=== PATIENT | female | born 1995 | race Two or more races ===

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

== ENCOUNTER → 2017-05-10 12:14 | Outpatient (CLI) | payer MEDICAID ==
[~2017-05-10 12:14] MED LIST: IBUPROFEN600 MG PO; PRENATABS RX TA1 TAB PO; SLOW RELEASE I160 MG PO
== END | disposition home or self-care (01) ==
LOC: D.LDO 12:14
DX: O48.0 Post-term pregnancy (principal); Z3A.40 40 weeks gestation of pregnancy

== ENCOUNTER 2017-05-14 05:00 | Inpatient (IN) | payer MEDICAID ==
[2017-05-14] MEDS ORDERED: PRENATABS RX TA1 TAB PO (06:12)
[2017-05-14] MEDS ORDERED: SLOW RELEASE I160 MG PO (06:13)
[2017-05-14 06:21] VITALS: BP 150/92; BMI 31.9
[2017-05-14 06:30] LABS: HEMOGLOBIN 9.8 g/dL (12-16); MCH 28.1 pg (26.0-34.0); MCHC 32.7 g/dL (31.0-37.0); MEAN PLATELET VOLUME 11.1 fL (7.4-10.4); RBC 3.49 10x6/uL (4.00-5.40); RDW 15.3 % (11.5-14.5); WBC 6.8 10x3/uL (4.8-10.8)
[2017-05-14 06:46] LABS: APPEARANCE CLOUDY (CLEAR); BACTERIA MANY /hpf (NONE SEEN); BILIRUBIN NEGATIVE (NEGATIVE); COLOR YELLOW (YELLOW); GLUCOSE NEGATIVE (NEGATIVE); KETONE NEGATIVE (NEGATIVE); NITRITE NEGATIVE (NEGATIVE); PROTEIN TRACE mg/dL (NEGATIVE); SPECIFIC GRAVITY 1.015 (1.005-1.020); UROBILINOGEN NORMAL (NORMAL)
[2017-05-14 06:47] LABS: MUCUS >1+ /lpf (NONE SEEN)
[2017-05-14 20:28] VITALS: BP 139/74
[2017-05-14 21:05] LABS: BASOPHILS 0.1 % (0-2); EOSINOPHILS 0 % (0-7); HEMATOCRIT 25.8 % (36.0-48.0); HEMOGLOBIN 8.6 g/dL (12-16); IMMATURE GRANULOCYTES 0.4 % (0-5); LYMPHOCYTES 5.4 % (15-50); MCH 28.4 pg (26.0-34.0); MCHC 33.3 g/dL (31.0-37.0); MCV 85.1 fL (80.0-100.0); MONOCYTES 5.9 % (2-11); NEUTROPHILS 88.2 % (40-80); RBC 3.03 10x6/uL (4.00-5.40); RDW 15.2 % (11.5-14.5)
[2017-05-14 21:06] LABS: PLATELET COUNT 107 10x3/uL (130-400); WBC 13.2 10x3/uL (4.8-10.8)
[2017-05-14 21:13] VITALS: BP 124/70
[2017-05-14 21:41] VITALS: BP 118/71
[2017-05-14 22:36] VITALS: BP 125/79
--- NOTE | 2017-05-14 23:19 | NUR ---
PT TRANSFERED FROM LDR ROOM TO PP ROOM. PT RESTING IN BED IN SEMI-FOWLERS POSITION, HOLDING , IN NO ACUTE DISTRESS. PT IS A 22YO G1 NOW P1 WITH OF VIABLE MALE TODAY @1857. INFANT WITH NUCHAL TIMES 1, REDUCED ON THE FIELD. PT WITH SUPERFICIAL LACERATIONS AND NO REPAIR. @ 40.4 WKS GESTATION. ELEVATED TEMP DEVELOPED AFTER . TYLENOL PROVIDED AND BLOOD CULTURES DRAWN, NO ANTIBIOTICS ORDER AT THIS TIME. WILL CONT TO MONITOR. AAOX3. HR REGULAR. LUNGS CTAB. ABDOMEN SOFT AND TENDER WITH FUNDAL MASSAGE. BS ACTIVE TIMES 4. FUNDUS FIRM AND ML @ U/-2 AFTER VOID. LOCHIA RUBRA SMALL. PERINIUM APPEARS TO BE INTACT WITH MINIMAL SWELLING NOTED. MARIA DEL CARMEN PAD AND PANTIES IN PLACE. PT S/P VOID. INSTRUCTED ON MARIA DEL CARMEN CARE WITH BETADINE WASH. PT HAS NOT PASSED GAS OR HAD A BM SINCE . PT TOLERATING REGULAR DIET. 2+ EDEMA NOTED TO LOWER EXTREMITES BILATERALLY. NO EDEMA NOTED TO UPPER EXTREMITIES BILATERALLY. 18G SL IN PLACE TO LEFT FA, FLUSHED WITH 5CC NS WITHOUT DIFFICULTY. NO REDNESS OR EDEMA NOTED TO SITE. PT TEMP NOW 99.1. PT RATES PAIN 3/10. FRESH WATER PROVIDED TO PT AND LINENS PROVIDED TO PT SO. PT DENIES ANY FURTHER NEEDS. BED IN LOW POSITION, SIDE RAILS UP TIMES 2, CALL LIGHT AND PHONE IN REACH. AT PT BS FOR COUPLET CARE AND SO REMAINS AT PT BS FOR SUPPORT AND ASSITANCE. WILL CONT TO MONITOR PT STATUS.
--- NOTE | 2017-05-15 00:30 | NUR ---
RN TO PT BS FOR ROUNDS. PT RESTING IN BED IN HIGH FOWLERS POSITION, ATTEMPTING TO BREASTFEED . PT IN NO ACUTE DISTRESS. FRESH WATER PROVIDED TO PT AT THIS TIME. PT DENIES ANY FURTHER NEEDS. BED IN LOW POSTION, SIDE RAILS UP TIMES 2, CALL LIGHT AND PHONE IN REACH. SO REMAINS AT PT BS FOR SUPPORT AND ASSISTANCE. REMAINS AT PT BS FOR COUPLET CARE. WILL CONT TO MONITOR PT STATUS.
--- NOTE | 2017-05-15 01:40 | NUR ---
RN TO PT BS. ASSISTED PT WITH LATCHING INFANT TO BREASTFEED. PT DENIES ANY FURTHER NEEDS AT THIS TIME. BED IN LOW POSITION, SIDE RAILS UP TIMES 2, CALL LIGHT AND PHONE IN REACH. SO REMAINS AT PT BS FOR SUPPORT AND ASSISTANCE. INFANT REMAINS AT PT BS FOR COUPLET CARE. WILL CONT TO MONITOR PT STATUS.
--- NOTE | 2017-05-15 03:30 | NUR ---
RN TO PT BS. PT AMBULATED TO BR WITH NO ASSISTANCE. PT VOIDED AND URINE COLLECTED FOR ORDERED URINE CULTURE. MARIA DEL CARMEN CARE PERFORMED USING BETADINE WASH. PT CLEANED SELF AND MARIA DEL CARMEN PAD AND PANTIES PLACED. CLEAN GOWN PLACED. PT RETURNED AMBULATION TO BED. PT TOLERATED WELL. BED IN LOW POSITION, SIDE RAILS UP TIMES 2, CALL LIGHT AND PHONE IN REACH. SO REMAINS AT PT BS FOR SUPPORT AND ASSISTANCE. INFANT REMAINS AT PT BS FOR COUPLET CARE. WILL CONT TO MONITOR PT STATUS.
--- NOTE | 2017-05-15 03:59 | NUR ---
RN TO PT BS TO PERFORM VS, WNL. PT C/O PAIN RATES 11/06, REQUESTS MEDICATION. DEMEROL 50MG PROVIDED TO PT AT THIS TIME. WATER MUG REFRESHED. PT DENIES ANY FURTHER NEEDS. BED IN LOW POSITION, SIDE RAILS UP TIMES 2, CALL LIGHT AND PHONE IN REACH. SO REMAINS AT PT BS FOR SUPPORT AND ASSISTANCE. REMAINS AT PT BS FOR COUPLET CARE. WILL CONT TO MONITOR PT STATUS.
[2017-05-15 04:04] VITALS: BP 127/67
--- NOTE | 2017-05-15 05:31 | NUR ---
CLINICAL LAB AT PT BS FOR AM DRAW.
[2017-05-15 05:42] LABS: HEMATOCRIT 24.2 % (36.0-48.0); HEMOGLOBIN 7.9 g/dL (12-16); MCH 27.8 pg (26.0-34.0); MCHC 32.6 g/dL (31.0-37.0); MCV 85.2 fL (80.0-100.0); MEAN PLATELET VOLUME 10.7 fL (7.4-10.4); RBC 2.84 10x6/uL (4.00-5.40); RDW 15.4 % (11.5-14.5); WBC 11.3 10x3/uL (4.8-10.8)
--- NOTE | 2017-05-15 06:32 | NUR ---
CBC RESULTS NOTED WITH LOW H&H, PT NOT SYMPTOMATIC. WILL NOTIFY AM SHIFT OF LAB RESULSTS. WBC DECREASED.
--- NOTE | 2017-05-15 07:23 | OP ---
PATIENT NAME: MEENA HERNANDEZ MEDICAL RECORD: [id number] :97 LOCATION:[id number] ADMISSION DATE:05/14/17 SURGEON: YONATAN TONG MD DATE OF OPERATION: 05/14/2017 Delivery Note Spontaneous vaginal delivery of male infant weighing 9 pounds 4.5 ounces, 8 and 9 Apgars, epidural anesthesia. No episiotomy, no lacerations. Spontaneous delivery of intact-appearing placenta. Estimated blood loss 400 cc. An 800 mcg of misoprostol placed in the rectum for a somewhat boggy uterus which promptly resolved. TRANSINT:[id number] Voice Confirmation ID: [id number] DOCUMENT ID: [id number] YONATAN TONG MD at 0723 CC: [id number] DICTATION DATE: 05/14/171918 DIRECTOR HOME HEALTH: 05/14/17 2220 ADM IN [facility] [address] [place] [address]
[2017-05-15 07:28] LABS: RAPID PLASMA REAGIN Non Reactive (Non Reactive)
--- NOTE | 2017-05-15 08:00 | NUR ---
DR TONG HERE TO SEE PT.
[2017-05-15 08:09] VITALS: BP 123/87
--- NOTE | 2017-05-15 08:14 | NUR ---
PT RINGS CALL LIGHT- STATES SHE NEEDS TO GET UP TO USE BATHROOM. INFORMED THAT IF SHE IS FEELING OK- MAY GET UP ON HER OWN DESIRED. VS DONE. UP TO BATHROOM.
--- NOTE | 2017-05-15 08:38 | NUR ---
IN SHOWER- TOLERATED WELL. LINENS CHANGED.
--- NOTE | 2017-05-15 10:41 | NUR ---
ASLEEP IN BED- IN ROOM.
[2017-05-15 13:10] VITALS: BP 121/78
--- NOTE | 2017-05-15 13:10 | NUR ---
SITTING UP IN BED HOLDING . DENIES NEEDS- NO REQUESTS. VS DONE.
--- NOTE | 2017-05-15 16:00 | NUR ---
UP AND ABOUT IN ROOM. DENIES NEEDS.
--- NOTE | 2017-05-15 18:25 | NUR ---
RINGS CALL LIGHT- REQUESTING PAIN MEDICATION. CO CRAMPING IN ABD. RATES PAIN A 3 ON SCALE OF 0-10.
--- NOTE | 2017-05-15 19:04 | NUR ---
report to pm shift.
--- NOTE | 2017-05-15 19:55 | NUR ---
PT TRANSFERRED VIA AMB FROM L&D PER L&D NURSE
[2017-05-15 20:25] VITALS: BP 129/83
--- NOTE | 2017-05-15 20:25 | NUR ---
ASSESSMENT PER FLOW SHEET, VS OBTAINED, SALINE LOCK IN LEFT HAND INTACT WITH NO REDNESS OR EDEMA, FF, ML, U/1, PT REPORTS LIGHT BLEEDING WITH NO CLOTS, PT REPORTS FLATUS, BMX2 TODAY AND VOIDING BY SELF WITH NO DIFFICULTY, PT DENIES NEEDS OR PAIN AT THIS TIME, BED IN LOW POSITION, SIDE RAILS X 2, CALL LIGHT IN REACH, BABY TO PT'S ARMS, FAMILY AND FRIENDS AT BEDSIDE
--- NOTE | 2017-05-15 21:07 | NUR ---
PT LOVINGLY HOLDING BABY, DENIES NEEDS OR PAIN, FAMILY AND FRIENDS AT BEDSIDE
--- NOTE | 2017-05-15 22:22 | NUR ---
PT HOLDING BABY, VISITING WITH FOB, DENIES PAIN, REQUESTED AND SERVED FRESH H20, DENIES FURTHER NEEDS
--- NOTE | 2017-05-16 00:13 | NUR ---
PT RESTING WITH EYES CLOSED, RESP QUIET, NO DISTRESS NOTED, LEFT UNDISTURBED AT THIS TIME, FOB ASLEEP IN RECLINER
--- NOTE | 2017-05-16 02:38 | NUR ---
PT AROUSES TO OPENING OF DOOR, DENIES NEEDS OR PAIN AT THIS TIME, FOB ASLEEP IN RECLINER
--- NOTE | 2017-05-16 04:50 | NUR ---
PT RESTING WITH EYES CLOSED, RESP QUIET, NO DISTRESS NOTED, LEFT UNDISTURBED AT THIS TIME, FOB ASLEEP IN RECLINER
--- NOTE | 2017-05-16 06:00 | NUR ---
PT ASSISTANT COMMUNITY DIRECTOR LIGHT, PT REQUESTED AND PROVIDED MARIA DEL [employer]MEN PANTIES, DENIES FURTHER NEEDS AT THIS TIME, FOB AND BABY AT BEDSIDE
--- NOTE | 2017-05-16 06:57 | NUR ---
SHIFT REPORT TO DARIN GOMEZ RN
[2017-05-16 07:30] VITALS: BP 120/77
--- NOTE | 2017-05-16 07:30 | NUR ---
PT WAS RECEIVED LYING IN BED. SHE OFFERS NO COMPLAINTS THIS AM. FOB AT BEDSIDE HOLDING BABY. GEN- AWAKE AND ALERT. LUNGS- CLEAR. HEART- RRR. ABD- SOFT WITH BS+. TENDERNESS WITH PALPATION. FUNDUS FIRM. SMALL LOCIA RUBRA. EXT- MINIMAL EDEMA LE. BED IS LOW, SIDE RAILS UP X 2 AND CALL LIGHT IN REACH. SALINE LOCK LEFT HAND PATENT. SHE STATES HER PAIN IS A 3.
--- NOTE | 2017-05-16 09:20 | NUR ---
PT IS SLEEPING. BED IS LOW, SIDE RAILS UP X 2 AND CALL LIGHT IN REACH.
--- NOTE | 2017-05-16 10:49 | NUR ---
PT AND FOB ARE BOTH SLEEPING. BED IS LOW, SIDE RAILS UP X 2 AND CALL LIGHT IN REACH.
--- NOTE | 2017-05-16 11:27 | NUR ---
PT REQUESTED MORE PANTIES. TOOK HER MESH UNDERWEAR. SHE OFFERS NO COMPLAINTS.
--- NOTE | 2017-05-16 11:49 | NUR ---
PT REQUESTED PAIN MEDICATION. SHE STATES HER PAIN IS ABOUT A 3 IN HER ABDOMEN.
[2017-05-16] MEDS ORDERED: IBUPROFEN600 MG PO (12:39)
--- NOTE | 2017-05-16 13:00 | NUR ---
PT OFFERS NO COMPLAINTS. SALINE LOCK D'CD. TIP INTACT.
--- NOTE | 2017-05-16 14:49 | NUR ---
PT IS C/O PAIN. PAIN MED GIVEN TO HER. SHE IS BEING DISCHARGED TO ROOM IN HERE SINCE BABY IS NOT GOING HOME. DISCHARGE INSTRUCTIONS DISCUSSED AND GIVEN. CALLED IN [facility] FOR HER TO GO [facility]ALTHC[facility] MARKETER AT PHARMACY. CALLED IN TO [facility] ON [facility] 600 MG Q 6 HRS PRN #40 NO REFILLS.
== END 2017-05-16 14:55 | disposition home or self-care (01) | DRG 775 ==
LOC: D.LD 05:00 → D.WS 05:38 → D.LD 05:38 → D.WS 05-15 19:55
PROVIDERS: ADMIT Obstetrics & Gynecology
PROC: 10E0XZZ Delivery of Products of Conception, External Approach (ICD-10-PCS; principal; 2017-05-14)
PROC: 10907ZC Drainage of Amniotic Fluid, Therapeutic from Products of Conception, Via Natural or Artificial Opening (ICD-10-PCS; 2017-05-14)
PROC: 3E0P3VZ Introduction of Hormone into Female Reproductive, Percutaneous Approach (ICD-10-PCS; 2017-05-14)
DX: O48.0 Post-term pregnancy (principal); Z37.0 Single live birth; Z3A.40 40 weeks gestation of pregnancy; O99.824 Streptococcus B carrier state complicating childbirth; O69.81X0 Labor and delivery complicated by cord around neck, without compression, not applicable or unspecified; O70.9 Perineal laceration during delivery, unspecified

== ENCOUNTER 2019-11-19 18:06 | Observation (INO) | payer MEDICAID ==
[~2019-11-19] VITALS: Ht 160 cm; Wt 65.9 kg
[2019-11-19 18:32] VITALS: Ht 160 cm; Wt 65.9 kg
[2019-11-19 19:31] LABS: CALC OSMOLALITY 266 mosm/kg (275-300); CALCIUM 8.3 mg/dL (8.5-10.1); CARBON DIOXIDE 27.4 mmol/L (21.0-32.0); CHLORIDE - SERUM 100 mmol/L (98-107); CREATININE - SERUM 0.5 mg/dL (0.6-1.3); GLUCOSE 86 mg/dL (74-106); POTASSIUM - SERUM 3.9 mmol/L (3.5-5.1); SODIUM 135 mmol/L (136-145); UREA NITROGEN 6 mg/dL (7-18); eGFR NON AFRICAN AMERICAN > 90 mL/min (90-120)
[2019-11-19 19:32] LABS: BASOPHILS 0.1 % (0-2); EOSINOPHILS 0.3 % (0-7); HEMATOCRIT 36.6 % (36.0-48.0); HEMOGLOBIN 12.4 g/dL (12-16); IMMATURE GRANULOCYTES 0.1 % (0-5); LYMPHOCYTES 21.4 % (15-50); MCH 29.8 pg (26.0-34.0); MCHC 33.9 g/dL (31.0-37.0); MEAN PLATELET VOLUME 11.1 fL (7.4-10.4); MONOCYTES 7.8 % (2-11); NEUTROPHILS 70.3 % (40-80); RBC 4.16 10x6/uL (4.00-5.40); RDW 12.2 % (11.5-14.5); WBC 6.8 10x3/uL (4.8-10.8)
[2019-11-19 19:34] LABS: PLATELET COUNT 179 10x3/uL (130-400)
[2019-11-19 19:37] LABS: ALBUMIN 3.6 g/dL (3.4-5.0); ALKALINE PHOSPHATASE 40 U/L (30-120); ALT (SGPT) 15 U/L (10-68); BILIRUBIN - TOTAL 0.35 mg/dL (0.2-1.3); PROTEIN - SERUM 7.4 g/dL (6.4-8.2)
--- NOTE | 2019-11-19 20:46 | NUR ---
URINE SENT TO LAB AT THIS TIME.
[2019-11-19] MEDS ORDERED: REGLAN5 MG PO (21:10)
[2019-11-19 21:24] LABS: BILIRUBIN NEGATIVE (NEGATIVE); GLUCOSE NEGATIVE (NEGATIVE); KETONE LARGE mg/dL (NEGATIVE); NITRITE NEGATIVE (NEGATIVE); SPECIFIC GRAVITY 1.025 (1.005-1.020); UROBILINOGEN NORMAL (NORMAL)
[2019-11-19 21:26] LABS: BACTERIA FEW /hpf (NEGATIVE); EPITHELIAL CELLS 0-5 /hpf (0-5); RED CELLS - URINE OCC /hpf (0-5); WHITE CELLS - URINE 0-5 /hpf (NEGATIVE)
[2019-11-19 22:23] VITALS: BP 116/74
[2019-11-20 05:52] LABS: BILIRUBIN NEGATIVE (NEGATIVE); GLUCOSE 50 mg/dL (NEGATIVE); KETONE NEGATIVE (NEGATIVE); NITRITE NEGATIVE (NEGATIVE); UROBILINOGEN NORMAL (NORMAL)
[2019-11-20 05:54] LABS: BACTERIA FEW /hpf (NEGATIVE); EPITHELIAL CELLS 0-5 /hpf (0-5); RED CELLS - URINE 0-5 /hpf (0-5); WHITE CELLS - URINE 0-5 /hpf (NEGATIVE)
== END 2019-11-20 06:05 | disposition home or self-care (01) ==
LOC: D.ER 18:06 → OBSVTIME 22:03 → D.LD 22:03
PROVIDERS: Family Medicine; ADMIT Obstetrics & Gynecology; ATTEND Obstetrics & Gynecology
DX: O21.1 Hyperemesis gravidarum with metabolic disturbance (principal); Z3A.11 11 weeks gestation of pregnancy

== ENCOUNTER → 2020-02-13 08:39 | Outpatient (CLI) | payer MEDICAID ==
[2019-11-19 18:32] VITALS: BMI 25.7
[~2020-02-13 08:39] MED LIST changes: +REGLAN5 MG PO
== END | disposition home or self-care (01) ==
LOC: D.US 08:39
PROVIDERS: ATTEND Student in an Organized Health Care Education/Training Program
DX: N63.11 Unspecified lump in the right breast, upper outer quadrant (principal); N63.21 Unspecified lump in the left breast, upper outer quadrant

== ENCOUNTER 2020-02-23 19:28 | Inpatient (IN) | payer MEDICAID ==
[~2020-02-23] VITALS: Ht 160 cm; Wt 73.9 kg
[2020-02-23] MEDS ORDERED: BUTALB-APAP-CA1 EACH PO (19:43)
[2020-02-23 20:23] LABS: BASOPHILS 0.1 % (0-2); EOSINOPHILS 0 % (0-7); HEMATOCRIT 33.5 % (36.0-48.0); IMMATURE GRANULOCYTES 1.4 % (0-5); LYMPHOCYTES 6.3 % (15-50); MCH 29.6 pg (26.0-34.0); MCHC 32.8 g/dL (31.0-37.0); MCV 90.3 fL (80.0-100.0); MEAN PLATELET VOLUME 10.7 fL (7.4-10.4); MONOCYTES 5.4 % (2-11); NEUTROPHILS 86.8 % (40-80); PLATELET COUNT 150 10x3/uL (130-400); RBC 3.71 10x6/uL (4.00-5.40); RDW 12.7 % (11.5-14.5); WBC 8.3 10x3/uL (4.8-10.8)
[2020-02-23 20:42] LABS: CALC OSMOLALITY 265 mosm/kg (275-300); CALCIUM 8.5 mg/dL (8.5-10.1); CARBON DIOXIDE 27.2 mmol/L (21.0-32.0); CHLORIDE - SERUM 102 mmol/L (98-107); CREATININE - SERUM 0.6 mg/dL (0.6-1.3); GLUCOSE 100 mg/dL (74-106); POTASSIUM - SERUM 3.5 mmol/L (3.5-5.1); SODIUM 134 mmol/L (136-145); UREA NITROGEN 6 mg/dL (7-18); eGFR NON AFRICAN AMERICAN > 90 mL/min (90-120)
--- NOTE | 2020-02-23 20:45 | NUR ---
URINE AND BLOOD TO LAB COVID 19 SWAB TO LAB.
[2020-02-23 20:49] LABS: ALBUMIN 2.7 g/dL (3.4-5.0); ALKALINE PHOSPHATASE 62 U/L (30-120); ALT (SGPT) 14 U/L (10-68); BILIRUBIN - TOTAL 0.32 mg/dL (0.2-1.3); PROTEIN - SERUM 6.7 g/dL (6.4-8.2)
[2020-02-23 21:01] LABS: BILIRUBIN NEGATIVE (NEGATIVE); GLUCOSE NEGATIVE (NEGATIVE); KETONE MODERATE mg/dL (NEGATIVE); NITRITE NEGATIVE (NEGATIVE); UROBILINOGEN NORMAL (NORMAL)
[2020-02-23 21:03] LABS: BACTERIA MANY /hpf (NEGATIVE); EPITHELIAL CELLS 0-5 /hpf (0-5); RED CELLS - URINE OCC /hpf (0-5); WHITE CELLS - URINE 0-5 /hpf (NEGATIVE)
[2020-02-23 21:18] VITALS: BP 107/67
[2020-02-23 21:19] LABS: APTT 30.7 SECONDS (22.8-39.4); INR 0.93 (0.85-1.17); PROTIME 12.5 SECONDS (11.6-15.0)
[2020-02-23 21:37] LABS: CKMB 0.1 U/L (0.0-3.6); CREATINE KINASE 33 UL (21-215); PRO BNP 46 pg/mL (0-125)
[2020-02-23 21:38] LABS: TROPONIN-I < 0.017 ng/mL (0.000-0.060)
[2020-02-23 22:46] VITALS: BMI 28.9
[2020-02-23 23:00] VITALS: BP 112/58
--- NOTE | 2020-02-24 00:06 | NUR ---
RECEIVED PT ON TO UNIT FROM ER. PT ALERT AND ORIENTED. AMBULATING WITHOUT DIFFICULTY. HEADACHE REPORTED AT THIS TIME. 100.9 TEMP CURRENTLY. PT REPORTS NO OTHER CONCERNS AT THIS TIME.
--- NOTE | 2020-02-24 00:53 | NUR ---
PT PLACED ON EFM X2 WITH + FHTS NOTED. FHR 155 WITH MODERATE VARIABILITY NOTED. NO CONTRACTIONS TRACED. Víctor FONG RN
--- NOTE | 2020-02-24 02:30 | NUR ---
FLU A&B, RSV, AND STREP LABS DONE, TAKEN TO LAB
--- NOTE | 2020-02-24 07:20 | NUR ---
RECIEVE REPORT. RESTING IN BED WITH EYES CLOSED. NO SIGNS OF DISTRESS. CONTINUE PLAN OF CARE AND SAFETY PRECAUTIONS.
[2020-02-24 09:46] VITALS: BP 111/70
--- NOTE | 2020-02-24 10:33 | NUR ---
PLACED ON MONITOR AT 1007 FOR NST. MOM REPORTS +FM. NST COMPLETED AT 1033, FHR BASELINE 140 WITH 10X10 ACCELS, MODERATE VARIBILITY. NO UC'S NOTED. REACTIVE NST. FM PALPABLE AND AUBILE BY RN DURING NST. REPORT GIVEN TO Martina RENNER RN.
--- NOTE | 2020-02-24 10:54 | NUR ---
REPORT CALLED TO DR. CHA REGARDING NST.
[2020-02-24 12:40] VITALS: BP 103/64
[2020-02-24 13:33] VITALS: Ht 160 cm; Wt 73.9 kg
[2020-02-24 16:59] VITALS: BP 107/69
--- NOTE | 2020-02-24 17:15 | NUR ---
DISCUSSED PT O2 THERAPY WITH DR. SAWYER AND SATS DURING PREVIOUS NST. ORDERS REC'D FOR CONTINUOUS PULSE OX MONITORING.
--- NOTE | 2020-02-24 18:20 | NUR ---
REACTIVE NST NOTED WITH FHT BASELINE 150 WITH 10 X 10 ACCELS, NO DECELS NOTED, NO UC'S NOTED. ON 4 L O2, SAT FROM 95%-97%. EDUCATED PT ON S/S TO REPORT, VERBALIZES UNDERSTANDING. REPORT GIVEN TO GINO GARCIA AND DISCUSSED CONTINUOUS O2 MONITORING PER ORDER.
--- NOTE | 2020-02-24 19:00 | NUR ---
REPORT RECEIVED, WILL CONTINUE POC. PATIENT IS AAOX4, SITTING UP IN BED. NO S/S OF DISTRESS OBSERVED, RR EVEN AND UNLABORED ON 4L O2 VIA NC. PATIENT REQUESTING A SHOWER. INFORMED PATIENT THAT A BED BATH/TUB BATH IS SUGGESTED AT THIS TIME DUE TO HER NEED TO HAVE O2 ON TO KEEP HER SATS >95% PATIENT AGREES. PATIENT DENIES FURTHER NEEDS AT THIS TIME. CL IN REACH, BED LOCKED AND LOWERED. WILL CTM.
[2020-02-24 20:00] VITALS: BP 99/60
--- NOTE | 2020-02-24 20:30 | NUR ---
CONTINUOUS PULSE OXIMETRY APPLIED. O2 SAT 98% ON 4L.
--- NOTE | 2020-02-24 21:55 | NUR ---
ADMINISTERED HS MEDS, PATIENT TOLERATED WELL. PROVIDED TUB BATH SUPPLIES. INFORMED PATIENT TO USE CALL LIGHT WHEN SHE IS READY FOR HER LINENS TO BE CHANGED. PROVIDED ICE WATER AND SNACKS PER REQUEST. PATIENT DENIES FURTHER NEEDS AT THIS TIME. CL IN REACH, BED LOCKED AND LOWERED. WILL CTM.
[2020-02-25] VITALS: BP 91/53
--- NOTE | 2020-02-25 02:24 | NUR ---
PT PLACED ON EFM WITH EXCESSIVE MOVEMENT NOTED. FHTS OBTAINED AT APPROX 0243. FHR 110-120 WITH ACCELS TO 130. NO DISTRESS NOTED. EFM REMOVED AT 0304. Víctor FONG RN
--- NOTE | 2020-02-25 03:20 | NUR ---
I have reviewed this patient and I concur with the Shift Assessment completed by the Licensed Practical Nurse today this shift.
[2020-02-25 04:00] VITALS: BP 90/52
--- NOTE | 2020-02-25 11:41 | NUR ---
REACTIVE NST NOTED. +FM. BASELINE 130 WITH 10 X 10 ACCELS, OCCASIONAL VARIBLE NOTED, NO UC'S. REPORT CALLED TO DR. CHA. O2 DURING NST 94% (WHEN TALKING) OTHERWISE 95%-97%.
--- NOTE | 2020-02-25 19:10 | NUR ---
REPORT RECEIVED, WILL CONTINUE POC. PATIENT IS AAOX4, SITTING UP IN BED. NO S/S OF DISTRESS OBSERVED, RR EVEN AND UNLABORED ON 4L O2 VIA NC AND ON CONTINUOUS PULSE OXIMETRY 98% PATIENT DENIES FURTHER NEEDS AT THIS TIME. CL IN REACH, BED LOCKED AND LOWERED. WILL CTM.
--- NOTE | 2020-02-25 19:20 | NUR ---
PT PLACED ON EFM X2 WITH + FHTS NOTED.Víctor JONES RN
--- NOTE | 2020-02-25 19:42 | NUR ---
NST RESULTS: FHTS 135-140. ACCESLS TO 150S NOTED. SOME LOSS OF CAPTURE DUE TO MOVEMENT NOTED. MATERNAL PULSE OX 98-100% ON 4.5 LITERS OF O2. NO DISTRESS NOTED AT THIS TIME. Víctor FONG RN
--- NOTE | 2020-02-25 19:49 | NUR ---
PT UP TO BATHROOM TO VOID. PULSE OX TO 95% ON ROOM AIR. COUGHING AND SOB NOTED WITH EXERTION. Víctor FONG RN
--- NOTE | 2020-02-25 22:00 | NUR ---
PATIENT CIGARETTE SELLER LIGHT TO USE RESTROOM. PATIENT SATS BETWEEN 88%-98% WHILE GOING TO AND FROM BATHROOM. SUGGESTED PATIENT USE BEDSIDE COMMODE SO THAT HER NASAL CANNULA CAN STAY ON, PATIENT AGREED. PROVIDED SANDWICH TRAY AND DRINK PER REQUEST. PATIENT DENIES FURTHER NEEDS AT THIS TIME. CL IN REACH, BED LOCKED AND LOWERED. DROPLET PRECAUTIONS MAINTAINED. WILL CTM.
[2020-02-26] VITALS: BP 98/61
--- NOTE | 2020-02-26 02:47 | NUR ---
I have reviewed this patient and I concur with the Shift Assessment completed by the Licensed Practical Nurse today this shift.
--- NOTE | 2020-02-26 03:35 | NUR ---
P TPLACED ON EFM FOR NST. + FHTS NOTED. Víctor FONG RN
[2020-02-26 04:00] VITALS: BP 105/67
--- NOTE | 2020-02-26 04:06 | NUR ---
FHR 135 WITH 15 X15 ACCELS NOTED, MATERNAL PULSE OX 95%. NST REACTIVE. GINO JONES
[2020-02-26 08:17] VITALS: BP 104/59
[2020-02-26 11:56] VITALS: BP 99/62
--- NOTE | 2020-02-26 11:56 | NUR ---
THIS RN TO ROOM. PT AWAKE. AAO X 3. VSS. EFHM PLACED WITH FHR 130'S-140'S. TOCO PLACED OVER FUNDUS. ABDOMEN PALPATES SOFT. PT STATES BABY ACTIVE. DENIES VAGINAL BLEEDING, LEAKING FLUID OR ABDOMINAL PAIN/TIGHTENING/CTX'S. PT ON 3 LITERS O2 PER N/C. STATES BECOMES SHORT OF BREATH WHEN AMBULATORY. DENIES C/O AT THIS TIME.
--- NOTE | 2020-02-26 12:30 | NUR ---
REACTIVE NST NOTED-FHR BASELINE 140 WITH ACCELS+; NO DECELS NOTED; MOD VARIABILITY NOTED. NO CTX'S NOTED.
--- NOTE | 2020-02-26 14:14 | NUR ---
Nutrition Follow-up: Pt in droplet isolation; covid-19 positive. Nursing reports pt eating well; asks to have vanilla ice cream added to lunch and dinner tray. Diet: Regular WT: 163# (02/23) No new labs Meds noted -+vanilla ice cream with lunch and dinner. -Monitor wt. -RD following.
[2020-02-26 17:19] LABS: C-REACTIVE PROTEIN 1.4 mg/dL (0.0-0.9)
--- NOTE | 2020-02-26 19:30 | NUR ---
PT IN BED, AAO X 3, RESP EVEN AND UNLABORED. NO DISTRESS NOTED, CL IN REACH, SR UP X 2.
[2020-02-26 20:00] VITALS: BP 106/61
--- NOTE | 2020-02-26 21:19 | NUR ---
fhr check. no uc's noted per toco nor felt per pt. fhr 140-150 w/ 0x10 accel to 160, audible movement noted. pt denies pain in abdomen, leaking of fluid, or vaginal bleeding. instructed to inform nurse if any of these signs or symptoms present. acknowledged understanding
[2020-02-27] VITALS: BP 106/66
[2020-02-27 04:00] VITALS: BP 117/56
--- NOTE | 2020-02-27 04:50 | NUR ---
to room for fht's, pt noted to be supine, resting quietly, spo2 93% on 3 LPM nc, fhr 130-140 w/ moderate variability, audible movement noted w/ accel to 150 for greater than 10 sec.
--- NOTE | 2020-02-27 08:00 | NUR ---
PT SITTING UP IN BED, RR EVEN AND UNLABORED ON 2L NC. DENIES NEEDS OR PAIN AT THIS TIME. CALL LIGHT WITHIN REACH. STATES SHE STILL FEELS THE BABY KICKING. BED IN LOWEST POSITION. WILL CONTINUE TO MONITOR.
[2020-02-27 08:06] VITALS: BP 109/56
[2020-02-27 11:57] VITALS: BP 115/72
--- NOTE | 2020-02-27 13:11 | NUR ---
EFM/TOCO APPLIED PER DR. CHA WHEN ROUNDING. RN TO BEDSIDE AT 1309, STRIP REVIEWED, REACTIVE NST NOTED WITH BASELINE OF 140, 10 X 10 ACCELS, MODERATE VARIBILITY NOTED, VARIBLE NOTED AT 1246. FM AUBILE AND PALABLE BY RN. PT REPORTS + FM. REPORTS DUNCAN, O2 2 L/MIN VIA NC. O2 SAT 96-97% WHILE RN AT BEDSIDE, DENIES NEEDS. BED IN LOW POSITION WITH SRUP X2. CALL LIGHT AND PHONE WITHIN REACH. PT INSTRUCTED TO NOTIFY STAFF OF DECREASED FM OR ABD PAIN/UC'S.
--- NOTE | 2020-02-27 13:21 | MORECARE ---
CASE MANAGEMENT DISCHARGE SUMMARY PATIENT: MEENA HERNANDEZ UNIT: [id number] ADM DATE: 02/23/20 AGE: 24 : 97 SEX: F ROOM/BED: D.2140 AUTHOR: HOMERO POLLARD PHYSICIAN: REFERRING PHYSICIAN: JULIAN CHA DO DATE OF SERVICE: 02/27/20 Discharge Plan Patient Name: MEENA HERNANDEZ Facility: [facility]:[place] : 1995 Planned Disposition: Home Anticipated Discharge Date: Discharge Date: Expected LOS: Initial Reviewer: [email or web address] Initial Review Date: 02/23/2020 Generated: 02/27/20 2:21 pm Patient Name: MEENA HERNANDEZ Page [id number] at 1321 All edits/amendments must be made on the electronic document DICTATION DATE: 02/27/20 1321 SALES FLOOR TEAM LEADER: KATIE 02/27/20 1321 RPT#: [id number] DC DATE: STATUS: ADM IN [facility] [address] [place] [address] END OF REPORT
--- NOTE | 2020-02-27 13:30 | MORECARE ---
CASE MANAGEMENT DISCHARGE SUMMARY PATIENT: MEENA HERNANDEZ UNIT: [id number] ADM DATE: 02/23/20 AGE: 24 : 97 SEX: F ROOM/BED: D.2140 AUTHOR: HOMERO POLLARD PHYSICIAN: REFERRING PHYSICIAN: JULIAN CHA DO DATE OF SERVICE: 02/27/20 Discharge Plan Patient Name: MEENA HERNANDEZ Facility: [facility]:[place] : 1995 Planned Disposition: Home Anticipated Discharge Date: Discharge Date: Expected LOS: Initial Reviewer: [email or web address] Initial Review Date: 02/23/2020 Generated: 02/27/20 2:29 pm DCPIA - Discharge Planning Initial Assessment Updated by [email or web address]: Mickie Castellanos on 02/27/20 1:27 pm * Is the patient Alert and Oriented? Yes * How many steps to enter\exit or inside your home? 3/0 * PCP NONE. DR CHA CROWN AND BRIDGE TECHNICIAN * Pharmacy [facility] [address] * Preadmission Environment Home with Family * ADLs Independent * Equipment None * Community resources currently utilized None * Additional services required to return to the preadmission environment? Yes * Can the patient safely return to the preadmission environment? Yes * Has this patient been hospitalized within the prior 30 days at any hospital? No Last DP export: 02/27/20 12:21 p Patient Name: MEENA HERNANDEZ Page [id number] at 1330 All edits/amendments must be made on the electronic document DICTATION DATE: 02/27/20 1329 SUPERVISOR LEAF SPRING REPAIR: KATIE 02/27/20 1329 RPT#: [id number] DC DATE: STATUS: ADM IN [facility] [address] [place] [address] END OF REPORT
--- NOTE | 2020-02-27 13:37 | MORECARE ---
CASE MANAGEMENT DISCHARGE SUMMARY PATIENT: MEENA HERNANDEZ UNIT: [id number] ADM DATE: 02/23/20 AGE: 24 : 97 SEX: F ROOM/BED: D.8080 AUTHOR: HOMERO POLLARD PHYSICIAN: REFERRING PHYSICIAN: JULIAN CHA DO DATE OF SERVICE: 02/27/20 Discharge Plan Patient Name: MEENA HERNANDEZ Facility: [facility]:[place] : 1995 Planned Disposition: Home Anticipated Discharge Date: Discharge Date: Expected LOS: Initial Reviewer: [email or web address] Initial Review Date: 02/23/2020 Generated: 02/27/20 2:37 pm Comments DCP- Discharge Planning Updated by [email or web address]: Mickie Castellanos on 02/27/20 12:[address] Patient Name: MEENA HERNANDEZ Admission Status: ER Accout number: [id number] Admission Date: 02-23-2020 : 1995 Admission Diagnosis:DISEASES OF THE RESP SYS COMP , SECOND TRIMEST Attending: SHAAN Current LOS: 4 Anticipated DC Date: Planned Disposition: Home Primary Insurance: [place] [employer] [facility] Discharge Planning Comments: CM met with patient to complete initial dc planning assessment. CM educated patient on the CM role and verbal consent given by patient to complete assessment. CM verified patient's address, phone number, and emergency contact phone numbers. Patient lives at home with her family. At discharge patient plans to return home and feels this is a safe discharge. CM discussed availability of home health, rehab services, and medical equipment. Patient is currently on continuous oxygen, and may require home and portable oxygen. Choice signed for Harpreet if 02 is required at discharge. Patient denies other known discharge needs at this time. Transportation provider at discharge will be her (Amandeep [phone]). CM will continue to follow and will assist as needed with dc plans/needs. Sampler Ovens: Mickie Castellanos DCPIA - Discharge Planning Initial Assessment Updated by [email or web address]: Mickie Castellanos on 02/27/20 1:27 pm * Is the patient Alert and Oriented? Yes * How many steps to enter\exit or inside your home? 3/0 * PCP NONE. DR CHA SUPERVISOR CONCRETE [employer]ONE [employer] * Pharmacy [facility] [address] * Preadmission Environment Home with Family * ADLs Independent * Equipment None * Community resources currently utilized None * Additional services required to return to the preadmission environment? Yes * Can the patient safely return to the preadmission environment? Yes * Has this patient been hospitalized within the prior 30 days at any hospital? No Last DP export: 02/27/20 12:30 p Patient Name: MEENA HERNANDEZ Page [phone] at 1337 All edits/amendments must be made on the electronic document DICTATION DATE: 02/27/201336 WRITER EDITOR: KATIE 02/27/207 RPT#: [id number] DC DATE: STATUS: ADM IN [facility] [address] [place] [address] END OF REPORT
--- NOTE | 2020-02-27 15:00 | NUR ---
WATER RECIEVED PER REQUEST. DENIES FURTHER NEEDS OR PAIN AT THIS TIME.
--- NOTE | 2020-02-27 18:20 | NUR ---
I have reviewed this patient and I concur with the Shift Assessment completed by the Licensed Practical Nurse today this shift.
[2020-02-27 19:54] VITALS: BP 118/63
[2020-02-28 01:53] VITALS: BP 110/69
--- NOTE | 2020-02-28 02:20 | NUR ---
to room for efm pt noted to be supine, tilted to the right, monitors placed, pt admits to movement, fhr 130-140 w/ accels noted to 150 for greater than 10 sec. audible movement noted during monitoring w/o fhr deceleratios
[2020-02-28 05:20] VITALS: BP 106/49
--- NOTE | 2020-02-28 07:00 | NUR ---
RECEIVED REPORT. ASSUMED CARE OF PATIENT. PATIENT REMAINS IN ISOLATION FOR POSITIVE COVID 19. L&D TO ASSESS FETUS PATIENT IS 24 WEEKS GESTATION.
[2020-02-28 08:30] VITALS: BP 102/61
--- NOTE | 2020-02-28 10:02 | NUR ---
THIS RN TO ROOM FOR ORDERED MONITORING. HR TRACING WNL FOR 25WEEK GESTATION. NO CONTRACTIONS NOTED OR PALPATED. PT DENIES FEELING CONTRACTIONS, REPORTS GOOD MOVEMENT. MOVEMENT NOTED BY THIS RN AT BEDSIDE. MONITORING NST TIME TOTAL 20MIN FROM [id number]. FHR BASELINE 135.
--- NOTE | 2020-02-28 12:00 | NUR ---
RESTING IN BED. NO DISTRESS. DENIES NEEDS. CALL LIGHT WITHIN REACH.
[2020-02-28 15:35] VITALS: BP 109/56
--- NOTE | 2020-02-28 16:30 | NUR ---
RESTING IN BED, NO DISTRESS. PATIENT WITH ATTENTION TOWARD TELEVISION. DENIES NEEDS AT THIS TIME. NO DISTRESS.
--- NOTE | 2020-02-28 19:30 | NUR ---
RECEIVED REPORT, WILL ASSUME CARE OF PT, ASKING FOR A SANDWICH,PROVIDED, DENIES ANY OTHER NEEDS, WILL CONTINUE PLAN OF CARE
[2020-02-28 19:55] VITALS: BP 116/81
--- NOTE | 2020-02-29 04:40 | NUR ---
to room for fhr monitoring, pt rec'd in supine position, admits to feeling movement, denies contractions, cramping, or leaking of fluid from vagina, belts applied and fhr obtained at 130-140 w/ accels noted to 150 lasting greater than 10 sec. audible movement w/ no decels noted
[2020-02-29 05:03] VITALS: BP 124/64
--- NOTE | 2020-02-29 07:00 | NUR ---
RECEIVED REPORT. ASSUMED CARE OF PATIENT. PATIENT REMAINS IN ISOLATION FOR POSITIVE COVID 19. PATIENT IS 25 WEEKS GESTATION, L&D MONITOR HEART TONES EVERY 8 HOURS. PATIENT STATES SHE FEELS WELL AND HOPES TO GO HOME TODAY.
[2020-02-29 09:42] VITALS: BP 111/59
--- NOTE | 2020-02-29 09:45 | NUR ---
O2 SAT 99% ON ROOM AIR. PATIENT RESTING IN BED. NO DISTRESS.
[2020-02-29 11:27] VITALS: BP 107/64
--- NOTE | 2020-02-29 12:30 | NUR ---
DR. MOISE HERE FOR ROUNDS AND PER HIS STAND POINT PATIENT IS ABLE TO DISCHARGE TO HOME.
--- NOTE | 2020-02-29 12:40 | NUR ---
OB NURSE HERE FOR MONITORING. INFORMED THAT PATIENT WAS CLEARED FOR DISCHARGE BY PULMONOLGY. OB NURSE STATED SHE WOULD MAKE THE PRIMARY MD AWARE WHEN SHE COMES FOR A DELIVERY THIS AFTERNOON.
[2020-02-29 12:49] VITALS: BP 114/66
--- NOTE | 2020-02-29 12:49 | NUR ---
PT SITTING UP IN BED. AWAKE. AAO X 3. VSS. EFHM PLACED WITH FHR 140-150S. TOCO PLACED OVER FUNDUS. ABDOMEN PALPATES SOFT. PT DENIES VAGINAL BLEEDING, LEAKING FLUID OR CTX'S. STATES BABY IS ACTIVE TODAY.
[2020-02-29 16:45] VITALS: BP 120/67
--- NOTE | 2020-02-29 21:51 | NUR ---
PIV REMOVED, CATHETER TIP INTACT, NO S/S OF BLEEDING AT SITE, PT TOLERATED WELL. DC PAPERWORK PROVIDED AND SIGNED, COPY PLACED IN CHART. ASSISTED TO VEHICLE VIA WHEELCHAIR ACCOMPANIED BY HOSPITAL STAFF.
--- NOTE | 2020-03-01 21:24 | MORECARE ---
CASE MANAGEMENT DISCHARGE SUMMARY PATIENT: MEENA HERNANDEZ UNIT: [id number] ADM DATE: 02/23/20 AGE: 24 : [birth year] SEX: F ROOM/BED: D.4380 AUTHOR: HOMERO POLLARD PHYSICIAN: REFERRING PHYSICIAN: JULIAN CHA DO DATE OF SERVICE: 03/01/20 Discharge Plan Patient Name: MEENA HERNANDEZ Facility: [facility]:[place] : 1995 Planned Disposition: Home Anticipated Discharge Date: Discharge Date: 02/29/2020 Expected LOS: Initial Reviewer: [email or web address] Initial Review Date: 02/23/2020 Generated: 03/01/20 10:23 pm DCP- Discharge Planning Updated by [email or web address]: Mickie Castellanos on 02/27/20 12:[address] Patient Name: MEENA HERNANDEZ Admission Status: ER Accout number: [id number] Admission Date: 02-23-2020 : 1995 Admission Diagnosis:DISEASES OF THE RESP SYS COMP , SECOND TRIMEST Attending: SHAAN Current LOS: 4 Anticipated DC Date: Planned Disposition: Home [place] Insurance: [place] [employer] [facility] Discharge Planning Comments: CM met with patient to complete initial dc planning assessment. CM educated patient on the CM role and verbal consent given by patient to complete assessment. CM verified patient's address, phone number, and emergency contact phone numbers. Patient lives at home with her family. At discharge patient plans to return home and feels this is a safe discharge. CM discussed availability of home health, rehab services, and medical equipment. Patient is currently on continuous oxygen, and may require home and portable oxygen. [facility]. Patient denies other known discharge needs at this time. Transportation provider at discharge will be her (Amandeep [phone]). CM will continue to follow and will assist as needed with dc plans/needs. Finish Sander: Mickie Castellanos DCPIA - Discharge Planning Initial Assessment Updated by [email or web address]: Mickie Castellanos on 02/27/20 1:27 pm * Is the patient Alert and Oriented? Yes * How many steps to enter\exit or inside your home? 3/0 * PCP NONE. DR CHA STAVE JOINTER * Pharmacy [facility] [address] * Preadmission Environment Home with Family * ADLs Independent * Equipment None * Community resources currently utilized None * Additional services required to return to the preadmission environment? Yes * Can the patient safely return to the preadmission environment? Yes * Has this patient been hospitalized within the prior 30 days at any hospital? No Last DP export: 02/27/20 12:37 p Patient Name: MEENA HERNANDEZ Page [id number] at 2124 All edits/amendments must be made on the electronic document DICTATION DATE: 03/01/202122 AVIATION ELECTRICIAN: KATIE 03/01/202122 RPT#: [id number] DC DATE:02/29/20 STATUS: DIS IN [facility] [address] [place] [address] END OF REPORT
== END 2020-02-29 21:59 | disposition home or self-care (01) | DRG 831 ==
LOC: D.ER 19:28 → D.M2 21:26
PROVIDERS: Emergency Medicine; Internal Medicine Pulmonary Disease; ADMIT Student in an Organized Health Care Education/Training Program; ATTEND Student in an Organized Health Care Education/Training Program
DX: O98.512 Other viral diseases complicating pregnancy, second trimester (principal); J18.9 Pneumonia, unspecified organism; U07.1 COVID-19; O99.512 Diseases of the respiratory system complicating pregnancy, second trimester; Z3A.24 24 weeks gestation of pregnancy

== ENCOUNTER 2020-04-16 11:44 | Outpatient (CLI) | payer MEDICAID ==
[2020-02-24 13:33] VITALS: BMI 28.8
[~2020-04-16 11:44] MED LIST changes: +BUTALB-APAP-CA1 EACH PO
== END 2020-04-16 13:04 | disposition home or self-care (01) ==
LOC: D.LDO 11:44
PROVIDERS: ATTEND Student in an Organized Health Care Education/Training Program
DX: O24.419 Gestational diabetes mellitus in pregnancy, unspecified control (principal)